=== PATIENT | female | born 1955 | race African-American/Black ===

== ENCOUNTER 2018-04-09 23:39 | Emergency (ER) | payer OTHER ==
[~2018-04-09] VITALS: Ht 167.6 cm; Wt 59.0 kg
[2018-04-09] MEDS ORDERED: NKM (23:49)
[2018-04-10] VITALS: BP 161/97
[2018-04-10] MEDS ORDERED: Ketorolac 60mg Inj IM ONE
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
[2018-04-10] MEDS ORDERED: IBUPROFEN600 MG ORAL (00:04)
[2018-04-10] MEDS ORDERED: CYCLOBENZAPRINE10 MG ORAL (00:04)
[2018-04-10] MEDS ORDERED: Norco 5mg/325mg tab ORAL ONE (00:15)
[2018-04-10 01:26] VITALS: BP 147/88
--- NOTE | 2018-04-10 10:43 | Diagnostic Imaging Report ---
Indication: Back pain Comparison: None Findings: 5 views of the lumbar spine were obtained. Flexion and extension views were included flexion view shows minimal anterolisthesis at L3-4 in the order of 5 5 mm. Neutral and extension views show normal alignment. Moderate endplate and facet osteophyte formation demonstrated. The bones are osteopenic. There is no fracture identified. Aorta is mildly calcified. IMPRESSION: 5 mm movement at the L3-4 level with a mild anterolisthesis on flexion. Moderate spondylosis as described above. Osteopenia
== END 2018-04-10 01:26 | disposition home or self-care (01) ==
LOC: EMR 23:52
DX: S39.012A Strain of muscle, fascia and tendon of lower back, initial encounter (principal); V43.62XA Car passenger injured in collision with other type car in traffic accident, initial encounter; Y92.410 Unspecified street and highway as the place of occurrence of the external cause
CPT/HCPCS: 72114; 96372; 99284